=== PATIENT | male | born 1965 | race Caucasian/White ===

== ENCOUNTER 2020-04-30 08:45 | Outpatient (CLI) | payer OTHER, SELFPAY ==
--- NOTE | 2020-04-30 09:06 | XR_ITS ---
WS: [id number] SHOULDER LEFT TECHNIQUE: 3 views of the left shoulder CLINICAL INFORMATION: PAIN COMPARISON: None. FINDINGS: Normal acromioclavicular joint. Normal glenohumeral joint. Acromion is normal in appearance. Normal g lenoid. No evidence of acute fracture dislocation. XR/XR shoulder LT min 2V* [id number] IMPRESSION: Normal left shoulder.
== END 2020-04-30 08:46 | disposition home or self-care (01) ==
LOC: RAD 08:54
PROVIDERS: Visit Provider Nurse Practitioner Family
DX: M25.512 Pain in left shoulder (principal)
CPT/HCPCS: 73030